=== PATIENT | female | born 1945 | race Caucasian/White ===

== ENCOUNTER → 2016-11-28 | Outpatient (CLI) | payer OTHER ==
--- NOTE | 2016-11-28 14:11 | MA ---
Screening Digital Mammogram With iCAD Analysis Clinical Indications: Routine screening. The patient has had a benign right breast stereotactic biops y and benign left breast surgical biopsy. Technique: Standard cephalocaudal and mediolateral oblique projections are obtained. The examination is processed by the iCAD computer-aided detection system. Comparison: October 2014, September 2013, September 2012, July 2011, February 2011, July 2010, June 2009. Breast density: Type C; Heterogeneously dense. Findings: CAD was reviewed. There are no masses, suspicious calcifications or other signs of malignan cy. There has been no significant change in the appearance of either breast. Vascular calcifications are noted. Impression: Negative mammogram. BI-RADS 1. Recommendation: Routine screening in one year, as long as physical examination is benign, in this pat ient with heterogeneously dense breast parenchyma. [facility] will send a result letter to the patient. Dense breast parenchyma diminishes mammographic sensitivity. Negative mammography should not preclude additional workup of a clinically suspicious finding. The patient's information is entered into a reminder system with a target due date for her next mammo gram.
== END ==
LOC: FIMAGING 09:55
DX: Z12.31 Encounter for screening mammogram for malignant neoplasm of breast (principal)
CPT/HCPCS: G0202

== ENCOUNTER 2017-09-17 07:41 | Day surgery (SDC) | payer OTHER ==
[2017-09-17] MEDS ORDERED: LR 1,000 ML IV ONE (07:56)
[2017-09-17 08:30] VITALS: PULSE 67
--- NOTE | 2017-09-17 08:44 | PDANEPAE ---
ANE History of Present Illness 71 yo F here for EGD and COLO ANE Past Medical History - Cardiovascular History Hx Hypertension: No Hx Arrhythmias: No Hx Chest Pain: No Hx Coronary Artery / Peripheral Vascular Disease: Yes Hx CHF / Valvular Disease: No Hx Palpitations: No Cardiovascular History Comment: MEDTRONIC LOOP RECORDER PLACED 06/[address] [facility] [address] BILL [phone]. OROTHOSTATIC BP. PULM HTN. BRADYCARDIA - Pulmonary History Hx COPD: Yes Hx Asthma/Reactive Airway Disease: No Hx Recent Upper Respiratory Infection: No Hx Oxygen in Use at Home: No Hx Sleep Apnea: No Sleep Apnea Screening Result - Last Documented: Negative - Neurologic History Hx Cerebrovascular Accident: No Hx Seizures: No Hx Dementia: No Neurologic History Comment: MANY YRS AGO TIA - Endocrine History Hx Diabetes: No Endocrine History Comment: ROSELIA. ADRENAL INSUFF. SJOGREN'S - Renal History Hx Renal Disorders: Yes Renal History Comment: UTI 06/2017. INCONT - Liver History Hx Hepatic Disorders: No - Neurological & Psychiatric Hx Hx Neurological and Psychiatric Disorders: No - Cancer History Hx Cancer: No - Congenital Disorder History Hx Congenital Disorders: No - GI History Hx Gastrointestinal Disorders: Yes Gastrointestinal History Comment: CONSTIPATION. PREV POLYP REMVL. GERD. PREV GI ULCER - Other Health History Other Health History: CHRONIC PAIN SYNDROME. CDD-HERNIATED DISC. PARKINSON. FIBROMYALGIA. PERIPHERAL NEUROPATHY. POST THORACIC OUTLET SURG LT ARM BLOOD CLOT. CHRONIC RHINITIS - Chronic Pain History Chronic Pain: Yes (GENERALIZED) - Surgical History Prior Surgeries: REMVL COLON POLYPS. VAGINAL PELVIC RECONSTRUCTION 07/2016 AT [facility]. VAG HYST. LT KNEE SCOPES. LUMBAR FUSION. REMVL PAROTID TUMOR. MARIVEL RIB RESECTION. REMVL SALIVARY STONE ANE Review of Systems Review of Systems: - Exercise capacity Exercise capacity: limited by disability METS (RN): 2 METS ANE Patient History - Allergies Allergies/Adverse Reactions: adhesive [Adhesive] Allergy (Unknown, Verified 05/08/16 22:00) Rash onabotulinumtoxinA [From Botox] Allergy (Verified 08/21/17 14:22) - Home Medications Home Medications: Benzonatate [Tessalon Pearles] 200 mg PO PRN 05/08/16 [Last Taken 09/10/17] Carbidopa/Levodopa 25/100Mg [Sinemet 25/100 MG (*)] 1 tab PO QID 05/08/16 [Last Taken 09/16/17] Cevimeline HCl [Evoxac] 30 mg PO TID 05/08/16 [Last Taken 09/16/17] Ciclesonide [ALVESCO] 80 mcg IH BID 05/08/16 [Last Taken 09/12/17] Diclofenac Sodium 1% [Voltaren Gel (*)] 1 zafar TP QID PRN 05/08/16 [Last Taken Unknown] Docusate Sodium [Colace 100 MG (*)] 100 mg PO PRN 05/08/16 [Last Taken 09/13/17] Esomeprazole Mag Trihydrate [Nexium] 40 mg PO BID 05/08/16 [Last Taken 09/16/17] Estrogens,Conjugated [Premarin 0.625 MG (*)] 0.625 mg PO DAILY 05/08/16 [Last Taken 09/17/17] Fluticasone Nasal [Flonase Nasal Russell] 50 mcg IH PRN 05/08/16 [Last Taken 09/16] Folic Acid [Folic Acid 1 MG (*)] 1 mg PO DAILY 05/08/16 [Last Taken 09/17/17] HYDROcodone BIT/HOMATROP ME-BR [Hydromet Syrup] 5 - 10 ml PO HS PRN 05/08/16 [ Last Taken Unknown] Hydrocodone/Acetaminophen [Vicodin 5-300 mg Tablet] 1 - 2 each PO BID 05/08/16 [ Last Taken 09/12/17] LORazepam [Ativan (*)] 0.5 mg PO PRN 05/08/16 [Last Taken Unknown] Levalbuterol Inhaler [Xopenex Hfa Inhaler (*)] 1 - 2 puffs IH Q4 PRN 05/08/16 [ Last Taken 09/10/17] Levothyroxine [Synthroid 75 mcg (*)] 75 mcg PO DAILY06 05/08/16 [Last Taken ] Methotrexate Sodium [Rheumatrex] 17.5 mg PO Q7D 05/08/16 [Last Taken 09/12/17] Polyethylene Glycol 3350 [Miralax 17 gm (*)] 17 gm PO DAILY 05/08/16 [Last Taken 09/16/17] Pregabalin [Lyrica 50mg (*)] 50 mg PO TID PRN 05/08/16 [Last Taken Unknown] Pseudoephedrine HCl [Sudafed 30mg (OTC)] 30 mg PO PRN 05/08/16 [Last Taken 09/10] Ranitidine HCl 150 mg PO HS PRN 05/08/16 [Last Taken 09/15/17] Salmeterol Diskus [Serevent Diskus (*)] 1 puffs IH BID PRN 05/08/16 [Last Taken 09/17/17] Zolpidem Tartrate [Ambien 5MG (*)] 5 mg PO HS 05/08/16 [Last Taken 09/15/17] predniSONE 1 mg PO PRN 05/08/16 [Last Taken 09/16/17] predniSONE 5 mg PO DAILY 05/08/16 [Last Taken 09/17/17] Triamterene-Hctz 37.5-25 mg Cp DAILY06 08/21/17 [Last Taken 09/16/17] - NPO status NPO Status: no food or drink >8 hours NPO Since - Liquids (Date): 09/17/17 NPO Since - Liquids (Time): 05:30 NPO Since - Solids (Date): 09/16/17 NPO Since - Solids (Time): 07:00 - Anes Hx Anes Hx: post operative nausea - Smoking Hx Smoking Status: Never smoked - Alcohol Use Alcohol Use: Rarely - Family Anes Hx Family Anes Hx: none ANE Labs/Vital Signs - Vital Signs Blood Pressure: 142/76 Heart Rate: 67 Respiratory Rate: 18 O2 Sat (%): 98 Height: 170.18 cm Weight: 63.503 kg ANE Physical Exam - Airway Neck exam: decreased ROM Mallampati Score: Class 2 Mouth exam: normal dental/mouth exam - Pulmonary Pulmonary: no respiratory distress - Cardiovascular Cardiovascular: regular rate and rhythym - ASA Status ASA Status: III ANE Anesthesia Plan Anesthesia Plan: general endotracheal anesthesia, GA with mask Total IV Anesthesia: Yes
[2017-09-17] MEDS ORDERED: PROPOFOL/EMULSION 500 MG/50 ML BOTTLE IV ONE (08:57)
[2017-09-17] MEDS ORDERED: NALOXONE HCL 0.4 MG/ML INJ IVP PRN (10:05)
--- NOTE | 2017-09-17 10:48 | POSTANESTH ---
Post Anesthetic Evaluation Cardiovascular Status: Normal, Stable, Similar to Pre-Op Cond Respiratory Status: Normal, Stable, Similar to Pre-op Cond. Level of Consciousness/Mental Status: Can Participate in Eval, Alert and Oriented Pain Control: Adequate, Prn Tx Ordered Nausea/Vomiting Control: Adequate, Prn Tx Ordered Complications Possibly Related to Anesthesia: None Noted
[2017-09-17 11:05] VITALS: O2SAT 99
--- NOTE | 2017-09-17 11:30 | GPN ---
[f rep st] PROCEDURE NOTE DATE OF PROCEDURE: 09/17/2017 PROCEDURES: Esophagogastroduodenoscopy with biopsy, total colonoscopy. PREOPERATIVE DIAGNOSES: 1. Chronic gastroesophageal reflux with heartburn and regurgitation, rule out Esparza's esophagus. 2. Personal history of adenomatous colon polyp, rule out same. 3. Family history of colon cancer, rule out same. POSTOPERATIVE DIAGNOSES: 1. Chronic gastroesophageal reflux with heartburn and regurgitation, rule out Esparza's esophagus. 2. Personal history of adenomatous colon polyp, rule out same. 3. Family history of colon cancer, rule out same. PREOPERATIVE INDICATIONS: The patient is a 71-year-old female who has chronic gastroesophageal reflu x with regurgitation, which is treated with chronic double-dose PPI therapy. She is set up for EGD t ellen to rule out development of Esparza's esophagus, esophageal ulcerations or H pylori gastritis. T otal colonoscopy is scheduled for personal history of adenomatous colon polyp removed from the cecum 5 years ago and a family history of colon cancer. PERMIT: Patient was informed of indication for procedure, risks and benefits of the procedure were o utlined by me and informed consent was obtained. POSTOPERATIVE MEDICATIONS: Monitor anesthesia care per Dr. Aguirre. FINDINGS: GIF-XQ 180 video endoscope was inserted into the oropharynx and passed to the proximal eso phagus under direct visualization. Esophageal mucosa appeared normal. Gastroesophageal junction was located at 38 cm from the incisors. Scope was entered into the stomach, there was a small sliding-t ype hiatal hernia pouch without erythema, erosions or ulceration. The cardia, fundus, body, and antr um, of the stomach appeared normal both in front view and retroflexed position of the instrument. Py loric channel, duodenal bulb, and sweep were normal to the second portion of the duodenum. Scope was slowly withdrawn. Random antral and fundic biopsies were obtained and placed in formalin to rule ou t H pylori gastritis. Scope was removed. Patient tolerated procedure well. The patient was repositioned and PCF-180 AL video colonoscope was inserted in the rectum and advanced to the cecum without difficulty. Colonic prep was good with adequate visualization of colonic mucos a. The scope was passed across the ileocecal valve into the terminal ileum. Distal 5 cm of the term inal ileum appeared normal. The ileocecal valve, appendiceal orifice, cecum, ascending colon, transv erse colon, and descending colon appeared normal. In the sigmoid colon, there were rare small divert icula without erythema or exudate. The rectum appeared normal both in front view and retroflexed pos itions of the instrument. Scope was removed. Digital exam confirmed normal anal canal. Patient nilda erated procedure well and was sent to recovery room in satisfactory condition. IMPRESSION: 1. Chronic gastroesophageal reflux disease with small hiatal hernia without evidence of esophageal u lceration, esophagitis or Esparza's esophagus-antral and fundic biopsies obtained to rule out concurr ent Helicobacter pylori gastritis. 2. Minimal left-sided diverticulosis without diverticulitis. 3. Personal history of adenomatous colon polyps without recurrence. 4. Family history of colon cancer without evidence of same. RECOMMENDATIONS: 1. Advance diet as tolerated today. 2. Continue with chronic anti-reflux lifestyle changes. 3. Continue Nexium 40 mg p.o. b.i.d.. 4. Follow up per primary care doctor. 5. Repeat EGD and total colonoscopy at 5 year interval if concurrent health problems permit at that time. /[id number]/MODL
[2017-09-17 11:54] VITALS: BP 126/64; RESP 16; TEMP 97.9
== END 2017-09-17 11:40 | disposition home or self-care (01) ==
LOC: FSGY 07:41
PROVIDERS: ATTEND Internal Medicine Gastroenterology
PROC: 0DB68ZX Excision of Stomach, Via Natural or Artificial Opening Endoscopic, Diagnostic (ICD-10-PCS; principal; 2017-09-17 09:00)
PROC: 0DJD8ZZ Inspection of Lower Intestinal Tract, Via Natural or Artificial Opening Endoscopic (ICD-10-PCS; principal; 2017-09-17 09:00)
DX: K44.9 Diaphragmatic hernia without obstruction or gangrene (principal); K21.9 Gastro-esophageal reflux disease without esophagitis; R12 Heartburn; K57.30 Diverticulosis of large intestine without perforation or abscess without bleeding; Z80.0 Family history of malignant neoplasm of digestive organs; G20 Parkinson's disease; I27.20 Pulmonary hypertension, unspecified
CPT/HCPCS: J2704

== ENCOUNTER → 2018-08-22 | Outpatient (CLI) | payer OTHER | LOC: FIMAGING 12:10 | PROVIDERS: ATTEND Internal Medicine | DX: Z12.31 Encounter for screening mammogram for malignant neoplasm of breast (principal) ==

== ENCOUNTER 2018-12-13 05:47 | Observation (INO) | payer OTHER ==
[2018-12-13] MEDS ORDERED: LR 1,000 ML IV ONE (06:02)
[2018-12-13] MEDS ORDERED: ceFAZolin 2 GM/DEXTROSE 100 ML IV ONE (06:02)
--- NOTE | 2018-12-13 06:33 | PDHPUP ---
History & Physical Update H&P update statement: This history and physical update is based on an assessment of the patient which was completed after admission or registration (within 24 hours), but prior to the surgery/procedure. H&P update: H&P reviewed & patient examined, no change in patient's condition since H&P completed H&P changes: Got her cataracts fixed. went well
[2018-12-13] MEDS ORDERED: LIDOCAINE 1% 300 MG/30 ML SDV ONE (06:45)
[2018-12-13] MEDS ORDERED: BUPIVACAINE 0.5% 30 ML SDV ONE (06:45)
[2018-12-13] MEDS ORDERED: MIDAZOLAM 2 MG/2 ML VIAL IVP ONE (07:13)
--- NOTE | 2018-12-13 07:13 | PDANEPAE ---
ANE History of Present Illness R inguinal hernia, here for open repair ANE Past Medical History - Cardiovascular History Hx Hypertension: No Hx Arrhythmias: No Hx Chest Pain: No Hx Coronary Artery / Peripheral Vascular Disease: Yes Hx CHF / Valvular Disease: No Hx Palpitations: No Cardiovascular History Comment: MEDTRONIC LOOP RECORDER PLACED 06/[address] [facility] [address] BILL [phone]. OROTHOSTATIC BP. PULM HTN 1 rib on R REMOVED/ 1 & 2 RIB REMOVED THORACIC OUTLET SYNDROME. BRADYCARDIA - Pulmonary History Hx COPD: Yes Hx Asthma/Reactive Airway Disease: No Hx Recent Upper Respiratory Infection: No Hx Oxygen in Use at Home: No Hx Sleep Apnea: No Sleep Apnea Screening Result - Last Documented: Negative Pulmonary History Comment: will be using 02 when active or at altitude - Neurologic History Hx Cerebrovascular Accident: No Hx Seizures: No Hx Dementia: No Neurologic History Comment: MANY YRS AGO TIA - Endocrine History Hx Diabetes: No Endocrine History Comment: ROSELIA thyrioditis. ADRENAL INSUFF. SJOGREN'S - Renal History Hx Renal Disorders: No Renal History Comment: UTI 06/2017. INCONT - Liver History Hx Hepatic Disorders: No - Neurological & Psychiatric Hx Hx Neurological and Psychiatric Disorders: Yes Neurological / Psychiatric History Comment: parkinsons. neuropathy hands and feet - Cancer History Hx Cancer: No - Congenital Disorder History Hx Congenital Disorders: No - GI History Hx Gastrointestinal Disorders: Yes Gastrointestinal History Comment: CONSTIPATION. PREV POLYP REMVL. GERD. PREV GI ULCER. esophagus - Other Health History Other Health History: CHRONIC PAIN SYNDROME. CDD-HERNIATED DISC. PARKINSON. FIBROMYALGIA. PERIPHERAL NEUROPATHY. hx dvt TO ARM AND LEG. POST THORACIC OUTLET SURG LT ARM BLOOD CLOT. CHRONIC RHINITIS - Chronic Pain History Chronic Pain: Yes (GENERALIZED) - Surgical History Prior Surgeries: REMVL COLON POLYPS. VAGINAL PELVIC RECONSTRUCTION 07/2016 AT [place]. VAG HYST. LT KNEE SCOPES. LUMBAR FUSION. REMVL PAROTID TUMOR. MARIVEL RIB RESECTION. REMVL SALIVARY STONE ANE Review of Systems Review of Systems: - Exercise capacity METS (RN): 3 METS ANE Patient History - Allergies Allergies/Adverse Reactions: adhesive [Adhesive] Allergy (Unknown, Verified 12/04/18 13:05) Rash onabotulinumtoxinA [From Botox] Allergy (Verified 12/04/18 13:05) - Home Medications Home Medications: Carbidopa/Levodopa 25/100Mg [Sinemet 25/100 MG (*)] 1 tab PO QID 05/08/16 [Last Taken 12/13/18 04:30] Ciclesonide [ALVESCO] 80 mcg IH BID 05/08/16 [Last Taken 12/12/18] Docusate Sodium [Colace 100 MG (*)] 100 mg PO HS 05/08/16 [Last Taken 12/12/18] Esomeprazole Mag Trihydrate [Nexium] 40 mg PO BID 05/08/16 [Last Taken 12/13/18 04:30] Estrogens,Conjugated [Premarin 0.625 MG (*)] 0.625 mg PO DAILY 05/08/16 [Last Taken 12/13/18] Fluticasone Nasal [Flonase Nasal Delmar] 50 mcg IH DAILY 05/08/16 [Last Taken 1 Week Ago ~12/06/18] Folic Acid [Folic Acid 1 MG (*)] 1 mg PO DAILY 05/08/16 [Last Taken 1 Week Ago ~ 12/06/18] Hydrocodone/Acetaminophen [Vicodin 5-300 mg Tablet] 1 - 2 each PO BID 05/08/16 [ Last Taken 12/12/18 16:00] LORazepam [Ativan (*)] 0.5 mg PO BID PRN 05/08/16 [Last Taken 3 Months Ago ~] Levalbuterol Inhaler [Xopenex Hfa Inhaler (*)] 1 - 2 puffs IH Q4 PRN 05/08/16 [ Last Taken 12/12/18] Levothyroxine [Synthroid 75 mcg (*)] 75 mcg PO MOTUWETHFRSA 05/08/16 [Last Taken 12/13/18 04:30] Methotrexate Sodium [Rheumatrex] 17.5 mg PO WE 05/08/16 [Last Taken 1 Week Ago ~ 12/06/18] Polyethylene Glycol 3350 [Miralax 17 gm (*)] 1 - 2 pkt PO DAILY PRN 05/08/16 [ Last Taken 12/12/18] Pseudoephedrine HCl [Sudafed 30mg (OTC)] 30 mg PO DAILY PRN 05/08/16 [Last Taken 2 Days Ago ~12/11/18] Ranitidine HCl 150 mg PO HS 05/08/16 [Last Taken 12/12/18] Salmeterol Diskus [Serevent Diskus (*)] 1 puffs IH BID 05/08/16 [Last Taken ] Zolpidem Tartrate [Ambien 5MG (*)] 5 mg PO HS 05/08/16 [Last Taken 12/12/18] predniSONE 1 mg PO DAILY@1200 05/08/16 [Last Taken 12/12/18] predniSONE 5 mg PO DAILY 05/08/16 [Last Taken 12/12/18] Levothyroxine [Synthroid 75 mcg (*)] 37.5 mcg PO BARROW 11/29/18 [Last Taken ] Polyvinyl Alcohol/Povidone/Pf [Refresh Classic Eye Drops] 1 each OP DAILY PRN [Last Taken 12/06/18] Triamterene/Hctz 37.5/25 [Dyazide 37.5/25 (*)] 1 cap PO DAILY 11/29/18 [Last Taken 12/12/18] predniSONE 1 mg PO DAILY@1500 PRN 11/29/18 [Last Taken 12/12/18] - NPO status NPO Since - Liquids (Date): 12/13/18 NPO Since - Liquids (Time): 04:30 NPO Since - Solids (Date): 12/12/18 NPO Since - Solids (Time): 17:00 - Smoking Hx Smoking Status: Never smoked - Family Anes Hx Family Hx Anesthesia Complications: none ANE Labs/Vital Signs - Vital Signs Height: 170.18 cm Weight: 62.596 kg ANE Physical Exam - Airway Neck exam: FROM Mallampati Score: Class 1 Mouth exam: normal dental/mouth exam - Pulmonary Pulmonary: no respiratory distress, no rales or rhonchi - Cardiovascular Cardiovascular: regular rate and rhythym, no murmur, rub, or gallop - ASA Status ASA Status: III ANE Anesthesia Plan Anesthesia Plan: GA with mask Total IV Anesthesia: Yes
[2018-12-13] MEDS ORDERED: MIDAZOLAM 2 MG/2 ML VIAL ONE (07:15)
[2018-12-13] MEDS ORDERED: ONDANSETRON 4 MG/2 ML VIAL ONE ×2 (07:18→09:01)
[2018-12-13] MEDS ORDERED: LIDOCAINE 2% 100 MG/5 ML SYR ONE (07:18)
[2018-12-13] MEDS ORDERED: RANITIDINE 50 MG/2 ML VIAL ONE (07:18)
[2018-12-13] MEDS ORDERED: DEXAMETHASONE 4 MG/ML VIAL ONE (07:18)
[2018-12-13] MEDS ORDERED: PROPOFOL/EMULSION 500 MG/50 ML BOTTLE IV ONE (07:19)
[2018-12-13] MEDS ORDERED: fentaNYL 100 MCG/2 ML INJ ONE ×2 (07:19→09:01)
[2018-12-13] MEDS ORDERED: PROPOFOL 200 MG/20 ML VIAL ONE (08:17)
[2018-12-13] MEDS ORDERED: POVIDONE OP PRN (08:30)
[2018-12-13] MEDS ORDERED: PSEUDOEPHEDRINE HCL 30 MG TAB PO PRN (08:30)
[2018-12-13] MEDS ORDERED: LEVALBUTEROL INHALER 200 PUFFS/15 GM MDI IH PRN (08:30)
[2018-12-13] MEDS ORDERED: POLYVINYL ALCOHOL OP PRN (08:30)
[2018-12-13] MEDS ORDERED: LORazepam 0.5 MG TAB PO PRN (08:30)
[2018-12-13] MEDS ORDERED: POLYETHYLENE GLYCOL 3350 17 GM PKT PO PRN (08:30)
[2018-12-13] MEDS ORDERED: ACETAMINOPHEN 325 MG TAB PO PRN (08:33)
[2018-12-13] MEDS ORDERED: HYDROCODONE/APAP 5/325 TAB PO PRN (08:33)
[2018-12-13] MEDS ORDERED: ONDANSETRON DISINTEGRATING 4 MG TAB PO PRN (08:33)
[2018-12-13] MEDS ORDERED: ONDANSETRON 4 MG/2 ML VIAL IVP PRN (08:33)
--- NOTE | 2018-12-13 08:39 | POSTOPPROG ---
Post Op Note Date of Operation: 12/13/18 Surgeon: Taina Centeno Behavior[facility] Medical Director: louie Anesthesiologist: zoey Anesthesia: IV Sedation Pre-op Diagnosis: right inguinal hernia Post-op Diagnosis: same Indication: 73 year old with RIH/groin bulge Procedure: open RIH Findings: hernia sac and soft tissue extending to labia Inf/Abcess present in the surg proc area at time of surgery?: No EBL: Minimal Specimen(s): hernia sac
[2018-12-13] MEDS ORDERED: LR 500 ML IV PRN (08:57)
[2018-12-13] MEDS ORDERED: MEPERIDINE 25 MG/0.5 ML AMP IVP PRN (08:57)
[2018-12-13] MEDS ORDERED: NALOXONE HCL 0.4 MG/ML INJ IVP PRN (08:57)
[2018-12-13] MEDS ORDERED: HYDROmorphONE/DILAUDID 2 MG/ML INJ IVP PRN (08:57)
[2018-12-13] MEDS ORDERED: predniSONE 5 MG TAB PO SCH (09:00)
[2018-12-13] MEDS: fentaNYL 100 MCG/2 ML INJ IVP PRN ×3 (09:05→09:36)
--- NOTE | 2018-12-13 09:07 | GOP ---
DATE OF OPERATION: 12/13/2018 SURGEON: Taina Centeno MD ESL INSTRUCTOR: Giulia Gray PA-C ANESTHESIA: Monitored anesthesia care with IV general. ANESTHESIOLOGIST: Alex Norris DO. PREOPERATIVE DIAGNOSIS: Right inguinal mass. POSTOPERATIVE DIAGNOSIS: Right inguinal mass. PROCEDURE PERFORMED: Right inguinal hernia repair with mesh. FINDINGS: Soft tissue extending into her labia, and large hernia sac. SPECIMENS: Hernia sac. ESTIMATED BLOOD LOSS: 5 cc. INDICATIONS: The patient is a 73-year-old woman with a mass in her right groin. It is more prominent when standing. She presents for repair. DESCRIPTION OF PROCEDURE: Patient was brought into the operating room, placed supine on the table, and monitored anesthesia care with IV general was performed. Her groin was prepped and draped in the usual sterile fashion. I infiltrated all sites with 0.5% Marcaine prior to making an incision. I made an incision over where the mass was palpable preoperatively. I dissected down through the skin, subcutaneous tissues, Jose fascia. It was easily crossed. I dissected down to the level of the inguinal ligament. There was a soft fold of tissue extending into her labia. I carefully dissected this tissue away and excised it. I found a defect in the inguinal ligament. It was not a femoral hernia but well defined. I dissected the hernia sac free from the inguinal ligament. I elevated it and used Metzenbaum scissors to open it. There were no bowel contents. I then suture ligated the hernia sac. It retracted back into the abdominal cavity. Due to the size of the small defect in an unusual location, I elected to perform a [id number] repair. I sutured the medium- size plug to the inguinal ligament and then placed a patch on top. I closed Jose's with 3-0 Vicryl. Skin closed with 3-0 Vicryl, followed by 4-0 Monocryl. Mastisol, Steri-Strips, sterile dressing applied. She was awakened in the operating room and transferred to PACU in stable condition. /[id number]/MODL MTDD
[2018-12-13] MEDS: HYDROCODONE/APAP 5/325 TAB PO PRN ×4 (10:24→21:09)
[2018-12-13] MEDS: FOLIC ACID 1 MG TAB PO SCH (10:24)
[2018-12-13] MEDS: LEVOTHYROXINE 75 MCG TAB PO SCH (10:27)
[2018-12-13] MEDS: CICLESONIDE 80 MCG IH SCH ×2 (10:28→21:11)
[2018-12-13] MEDS: predniSONE 5 MG TAB PO SCH (10:28)
[2018-12-13] MEDS: ESTROGENS,CONJUGATED 0.625 MG TAB PO SCH (10:28)
[2018-12-13] MEDS: FLUTICASONE NASAL 120 SPRAYS/16 GM MDI EACHNARE SCH (10:28)
[2018-12-13] MEDS: SALMETEROL DISKUS MDI IH SCH ×2 (10:29→21:11)
[2018-12-13] MEDS: TRIAMTERENE/HCTZ 37.5/25 1 EACH CAP PO SCH (11:04)
[2018-12-13] MEDS: CARBIDOPA/LEVODOPA 25 MG/100 MG TAB PO SCH ×3 (11:41→20:08)
[2018-12-13] MEDS ORDERED: predniSONE 1 MG TAB PO SCH (12:00)
[2018-12-13] MEDS ORDERED: KETOROLAC 15 MG/1 ML SDV IVP ONE (14:45)
[2018-12-13] MEDS ORDERED: predniSONE 1 MG TAB PO PRN (15:00)
[2018-12-13] MEDS ORDERED: DOCUSATE SODIUM 100 MG CAP PO SCH (21:00)
[2018-12-13] MEDS ORDERED: ZOLPIDEM TARTRATE 5 MG TAB PO SCH (21:00)
[2018-12-13] MEDS: FAMOTIDINE 20 MG TAB PO SCH (21:10)
[2018-12-14] MEDS: HYDROCODONE/APAP 5/325 TAB PO PRN ×2 (04:34→08:45)
[2018-12-14] MEDS: CARBIDOPA/LEVODOPA 25 MG/100 MG TAB PO SCH (05:29)
[2018-12-14] MEDS: predniSONE 5 MG TAB PO SCH (08:36)
[2018-12-14] MEDS: TRIAMTERENE/HCTZ 37.5/25 1 EACH CAP PO SCH (08:36)
[2018-12-14] MEDS: ESTROGENS,CONJUGATED 0.625 MG TAB PO SCH (08:36)
[2018-12-14] MEDS: FAMOTIDINE 20 MG TAB PO SCH (08:36)
[2018-12-14] MEDS: FOLIC ACID 1 MG TAB PO SCH (08:37)
[2018-12-14 08:42] VITALS: BP 114/75
[2018-12-14] MEDS: LEVOTHYROXINE 75 MCG TAB PO SCH (08:46)
[2018-12-14] MEDS: FLUTICASONE NASAL 120 SPRAYS/16 GM MDI EACHNARE SCH (08:48)
[2018-12-14] MEDS ORDERED: PANTOPRAZOLE SODIUM 40 MG TAB PO SCH (09:00)
[2018-12-14] MEDS: CICLESONIDE 80 MCG IH SCH (09:15)
[2018-12-14] MEDS: SALMETEROL DISKUS MDI IH SCH (09:15)
--- NOTE | 2018-12-14 12:27 | ASDISCHSUM ---
Discharge Information Plan Status:Home with No Needs Medically Cleared to Leave:12/13/2018 Discharge Date:12/14/2018 09:47 AM CM D/C Disposition:Home, Routine, Self-Care ADT D/C Disposition:Home, Routine, Self-Care Projected Discharge Date:12/14/2018 09:47 AM Transportation at D/C:Family Discharge Delay Reason: Follow-Up Date:12/14/2018 09:47 AM Discharge Slot:1 - 8:01 am - 12:00 noon Final Diagnosis:Right inguinal mass, s/p inguinal hernia repair with mesh Placement Information Patient Contact Information Contact Name:TIFFANITRISTENOSCAR Relationship: Address:[address] [place] [address] City:[place] Alternate Phone: [facility]/Zip Code:[place] [address] Email: Financial Information Financial Class:Medicare Primary Plan Desc:MEDICARE OUTPATIENT Primary Plan Number:[id number] Secondary Plan Desc:SADAF INDEMNITY Secondary Plan Number:[id number] Assessment Information [facility] CM Progress Note CM Note CM Note Notes: Reviewed chart. Pt admitted for a right inguinal mass, she is s/p an inguinal hernia repair with mesh. History includes adrenal insufficiency, thyroid issues, connective tissue disorder. Pt is and lives with her . Pt to discharge home today with family support and no identified needs. No IM/LAUREN forms signed, pt left prior to signing. Pt to follow up as directed. CM available for any further issues or concerns. Discharge Plan: Home Independently Date Signed: 12/14/2018 12:22 PM Electronically Signed By:Rosy Rivera RN LACE LACE Length of stay for Answers: 1 day current admission Acuity / Level of Answers: No Care: Did the patient have an inpatient admission? Comorbidities - select Answers: Connective tissue disease all that apply Other Notes: Inguinal mass, adrenal insufficiency # of Emergency department Answers: 0 visits in the last 6 months Score: 5 Date Signed: 12/14/2018 12:25 PM Electronically Signed By:Rosy Rivera RN Intervention Information Intervention Type:IM-Pt. Not Available Date of Service:12/14/2018 12:22 PM Patient Type:Observation Staff Member:SHEBA Rivera Taylor Hours: Discipline: Severity: Comment:Pt left prior to signing. Intervention Type:LAUREN-Not Delivered Date of Service:12/14/2018 12:23 PM Patient Type:Observation Staff Member:SHEBA Rivera Taylor Hours: Discipline: Severity: Comment:Pt left prior to signing.
[2018-12-15] MEDS ORDERED: LEVOTHYROXINE 75 MCG TAB PO SCH (08:30)
[2018-12-15] MEDS ORDERED: ENOXAPARIN 40 MG/0.4 ML SYR SC SCH (09:00)
--- NOTE | 2018-12-16 16:25 | POSTANESTH ---
Post Anesthetic Evaluation Cardiovascular Status: Normal, Stable Respiratory Status: Normal, Stable Level of Consciousness/Mental Status: Can Participate in Eval, Mildly Sleepy, Arousable Pain Control: Adequate, Prn Tx Ordered Nausea/Vomiting Control: Adequate, Prn Tx Ordered Complications Possibly Related to Anesthesia: None Noted
[2018-12-18] MEDS ORDERED: METHOTREXATE 2.5 MG TAB PO SCH (08:30)
== END 2018-12-14 09:47 | disposition home or self-care (01) ==
LOC: F3E 05:47 → EDSTATUS 07:15 → F3E 10:06
PROVIDERS: ADMIT Surgery; ATTEND Surgery
PROC: 0YQ50ZZ Repair Right Inguinal Region, Open Approach (ICD-10-PCS; principal; 2018-12-13 07:15)
DX: K40.90 Unilateral inguinal hernia, without obstruction or gangrene, not specified as recurrent (principal); E27.40 Unspecified adrenocortical insufficiency; J44.9 Chronic obstructive pulmonary disease, unspecified; G20 Parkinson's disease; I27.20 Pulmonary hypertension, unspecified; K21.9 Gastro-esophageal reflux disease without esophagitis
CPT/HCPCS: 49505; 97161; C1781; J0690; J1100; J1885; J2001; J2250; J2405; J2704; J2780; J3010; J7512

== ENCOUNTER → 2019-04-30 | Outpatient (CLI) | payer OTHER | LOC: FIMAGING 10:37 ==